=== PATIENT | female | born 1960 | race Caucasian/White ===

== ENCOUNTER 2018-01-22 11:32 | Outpatient (CLI) | payer BC, SELFPAY ==
[2018-01-22 13:51] LABS: TSH (W/Ref FT4) 4.89 uIU/mL (0.358-3.74)
[2018-01-22 14:10] LABS: FREE T4 0.91 ng/dL (0.76-1.46)
== END 2018-01-22 11:52 ==
PROVIDERS: PCP General Practice; Visit Provider Nurse Practitioner Family
DX: N93.9 Abnormal uterine and vaginal bleeding, unspecified (principal)
CPT/HCPCS: 36415; 84439; 84443

== ENCOUNTER 2018-01-22 12:41 | Outpatient (REF) | payer BC, SELFPAY ==
--- NOTE | 2018-01-22 11:30 | PAPFT_PTH ---
PATIENT: Adela Sims LOC: [facility] U#:[id number] AGE/SX: 57/F ROOM: RE01/22/[address]: MAHENDRA Salgado : 1960 BED: DIS: 01/22/2018 SPEC #: [id number] RECD: 01/22/18 17:38 STATUS: CANDY REQ #: [id number] SOMMER: 01/22/18 11:[address]: Aria Stewart DEPT: [facility] Cytology RECD BY: Libia Rodrigues ENTERED: 01/22/18 17:39 SP TYPE: PAPFT OTHR DR: Xander Jordan Tissues: 1 - CX/ENDOCX FOR PAP SMEARS Procedures: PAP THIN PREP/UVM Screening HPV DNA PROBE Comments: [id number]
== END 2018-01-22 13:01 ==
LOC: LBN 12:41
PROVIDERS: PCP General Practice; Visit Provider Nurse Practitioner Family
DX: Z12.4 Encounter for screening for malignant neoplasm of cervix (principal); Z11.51 Encounter for screening for human papillomavirus (HPV)
CPT/HCPCS: 88142; 87624

== ENCOUNTER 2018-02-09 00:07 | Outpatient (CLI) | payer BC, SELFPAY ==
--- NOTE | 2018-02-09 11:23 | DI.MAMMO_ITS ---
SYMPTOMS/DIAGNOSIS: SCREENING, Z12.31 MAMMOGRAM: Mammograms were interpreted according to the usual protocol including computer analysis with CAD system, tomosynthesis and C view imaging. The breasts are heterogeneously dense. No dominant mass or clumped microcalcification is identified in either breast. Current examination is compared with the previous examinations including November 2015 and there is a question of increased prominence of a focal area of asymmetric density with a vaguely nodular appearance projected in the central portion of the right breast on CC view only. Additional mammographic views of the right breast are requested to include a CC spot compression view. CONCLUSION: Additional mammographic views of the right breast are requested as described above. Breast ultrasound may be indicated as well depending on the results of the additional mammographic views. Category 0, breast density category C. MQSA ASSESSMENT OF FINDINGS: Incomplete: Needs additional imaging evaluation. Category 0. Patient will receive a letter notifying them of these results. Bi-RADS category C. The breasts are heterogeneously dense, which may obscure small masses.
--- NOTE | 2018-02-09 12:43 | DI.US_ITS ---
SYMPTOMS/DIAGNOSIS: ABNL BLEEDING, N93.9 PELVIC ULTRASOUND: Pelvic ultrasound was performed transabdominally and transvaginally. Incidental note is made of an apparent 3 cm in diameter lobulated or septated right hepatic lobe cyst. The ovaries are nonvisualized. The uterus is unremarkable in appearance with a 3 mm homogeneous endometrial stripe. Limited scanning of the kidneys is unremarkable. CONCLUSION: Nonvisualized ovaries. The examination is otherwise unremarkable.
== END 2018-02-09 00:27 ==
PROVIDERS: PCP General Practice; Visit Provider Nurse Practitioner Family
DX: Z12.31 Encounter for screening mammogram for malignant neoplasm of breast (principal); R92.8 Other abnormal and inconclusive findings on diagnostic imaging of breast; N93.9 Abnormal uterine and vaginal bleeding, unspecified; K76.89 Other specified diseases of liver
CPT/HCPCS: 77063; 77067; 76830; 76856

== ENCOUNTER 2018-02-16 00:49 | Outpatient (CLI) | payer MEDICAID, SELFPAY ==
--- NOTE | 2018-02-16 10:43 | DI.COMBO_ITS ---
SYMPTOM/DIAGNOSIS: F/U MAMMO, RT ASYMMETRIC DENSITY RIGHT BREAST ADDITIONAL VIEWS AND RIGHT BREAST ULTRASOUND: Additional images are interpreted according to the usual protocol including tomosynthesis and 2D imaging. Additional views of the right breast fail to show a persistent discrete mass. Breast density, category C. A right breast ultrasound was performed of the upper outer and lower outer quadrants. No cystic or solid masses are seen sonographically. IMPRESSION: No evidence for malignancy. Yearly mammography is recommended. Category 1. The findings were discussed with the patient on the date of the examination. MQSA ASSESSMENT OF FINDINGS: Negative. Category 1. Patient will receive a letter notifying them of these results. Bi-RADS category C. The breasts are heterogeneously dense, which may obscure small masses.
== END 2018-02-16 01:09 ==
PROVIDERS: PCP General Practice; Visit Provider Nurse Practitioner Family
DX: Z12.31 Encounter for screening mammogram for malignant neoplasm of breast (principal); R92.8 Other abnormal and inconclusive findings on diagnostic imaging of breast; N64.59 Other signs and symptoms in breast
CPT/HCPCS: 76642; 77063; 77067

== ENCOUNTER 2018-02-22 10:34 | Outpatient (CLI) | payer MEDICAID, SELFPAY ==
[2018-02-23 10:24] LABS: FSH 49.5 mIU/ml; LH 42.3 mIU/ml
== END 2018-02-22 10:54 ==
PROVIDERS: PCP General Practice; Visit Provider Nurse Practitioner Family
DX: N93.9 Abnormal uterine and vaginal bleeding, unspecified (principal)
CPT/HCPCS: 36415; 83001; 83002

== ENCOUNTER 2018-02-23 11:51 | Day surgery (SDC) | payer MEDICAID, SELFPAY ==
[2018-02-23 12:13] VITALS: BP 152/79; PULSE 71; RESP 16; TEMP 37; O2SAT 98
[2018-02-23] MEDS: Lactated Ringers 1,000 ML 30 ML IV (12:46)
--- NOTE | 2018-02-23 13:52 | W.COLOREPORT ---
Date of service: 02/23/18 Time of Service: 13:00 Colonoscopy Report Date of procedure: 02/23/18 Pre-op diagnosis general: Colorectal cancer screening Post-op diagnosis procedure note: other (Normal colon to the cecum) Procedure: Colonoscopy to the cecum Surgeon: Ismael Ragland Anesthesia proc note operative: MAC (Tory Mckeon CRNA; ASA 2 Mallampati class II) Estimated blood loss (mL): 0 Pathology: none sent Complications: None Disposition: same day Indications: 57-year-old woman presenting for colorectal cancer screening. She has been asymptomatic, and has no family history of colorectal cancer. The colonoscopy procedure is been reviewed with her. The risks of the procedure were discussed. All her questions been answered to her satisfaction. Consent has been obtained to proceed with colonoscopy. Prep: Miralax/Dulcolax (Prep quality excellent) Procedure Start Time: 13:34 Procedure End Time: 13:48 Retraction Time: 10 Findings: Examining the colon from cecum to anus, no abnormalities were noted in the colon, rectum, or anorectal junction Procedure Description: The patient was seen in the day surgery waiting area. Her identification was confirmed, and procedure checked. She was then brought to the procedure room. Monitoring for telemetry, blood pressure, oxygen saturation, and end tidal CO2 monitoring were applied. An appropriate time out was performed to confirm, identification, allergies, medication, procedure, was performed. Sedation was titrated for affect by the REAL ESTATE UTILIZATION OFFICER; Once adequate sedation was achieved, I performed a inspection of the external perineum, and a digitial rectal examination. No significant external abnormalities were noted. On digital rectal examination, there was no blood, no masses, good rectal tone. I advanced the colonoscope from the anus to the cecum under direct visualization. The cecum was identified by the ileal-cecal valve, and the appendiceal orifice. The scope was then withdrawn in circumferential manner from the cecum to the rectum. No abnormalites were noted in the colon. The scope was then withdrawn into the rectum, and retroflexed. No abnormalities were noted of the rectum or anorectal junction. The scope was then withdrawn, terminating the procedure. There were no complications during the procedure, and the patient tolerated the procedure well. She was returned to the day surgery recovery area in good condition. Plan: Will continue with routine screening for colorectal cancer according to current consensus guidelines, which is currently 10 years.
--- NOTE | 2018-02-23 13:56 | COLE_ITS ---
Date of service: 02/23/18 Time of Service: 13:00 Colonoscopy Report Date of procedure: 02/23/18 Pre-op diagnosis general: Colorectal cancer screening Post-op diagnosis procedure note: other (Normal colon to the cecum) Procedure: Colonoscopy to the cecum Surgeon: Ismael Ragland Anesthesia proc note operative: MAC (Tory Mckeon CRNA; ASA 2 Mallampati class II) Estimated blood loss (mL): 0 Pathology: none sent Complications: None Disposition: same day Indications: 57-year-old woman presenting for colorectal cancer screening. She has been asymptomatic, and has no family history of colorectal cancer. The colonoscopy procedure is been reviewed with her. The risks of the procedure were discussed. All her questions been answered to her satisfaction. Consent has been obtained to proceed with colonoscopy. Prep: Miralax/Dulcolax (Prep quality excellent) Procedure Start Time: 13:34 Procedure End Time: 13:48 Retraction Time: 10 Findings: Examining the colon from cecum to anus, no abnormalities were noted in the colon, rectum, or anorectal junction Procedure Description: The patient was seen in the day surgery waiting area. Her identification was confirmed, and procedure checked. She was then brought to the procedure room. Monitoring for telemetry, blood pressure, oxygen saturation, and end tidal CO2 monitoring were applied. An appropriate time out was performed to confirm, identification, allergies, medication, procedure, was performed. Sedation was titrated for affect by the COACH MECHANIC; Once adequate sedation was achieved, I performed a inspection of the external perineum, and a digitial rectal examination. No significant external abnormalities were noted. On digital rectal examination, there was no blood, no masses, good rectal tone. I advanced the colonoscope from the anus to the cecum under direct vi sualization. The cecum was identified by the ileal-cecal valve, and the appendiceal orifice. The scope was then withdrawn in circumferential manner from the cecum to the rectum. No abnormalites were noted in the colon. The scope was then withdrawn into the rectum, and retroflexed. No abnormalities were noted of the rectum or anorectal junction. The scope was then withdrawn, terminating the procedure. There were no complications during the procedure, and the patient tolerated the procedure well. She was returned to the day surgery recovery area in good condition. Plan: Will continue with routine screening for colorectal cancer according to current consensus guidelines, which is currently 10 years.
--- NOTE | 2018-02-23 13:58 | W.PM.DSUDISC ---
Discharge Plan Disposition Patient Disposition: HOME Condition: Good Discharge Details Reason For Visit: colorectal cancer screening Attending Provider: Ismael Ragland Primary Care Provider: Xander Jordan Home Meds and New Rx's Prescriptions: Continued fluoxetine [Prozac] 20 mg capsule 20 mg PO DAILY RF: 0 propranolol 40 mg tablet 40 mg PO BID RF: 0 Discontinued bisacodyl [Dulcolax (bisacodyl)] 5 mg tablet,delayed release (DR/EC) 5 mg PO ONCE Qty: 4 RF: 0 polyethylene glycol 3350 17 gram/dose powder 255 g PO ONCE Qty: 255 RF: 0 Discharge Instructions Instructions: Colonoscopy (DC) Activity:: Activity as Tolerated Diet:: As Tolerated Discharge Orders Discharge Orders: Discharge Order (Routine); Ordered 02/23/18 Ordered By: Ismael Ragland DS: Diagnosis Discharge Diagnosis (1) Encounter for screening colonoscopy: Status: Acute Asessment and Plan: Colonoscopy performed: Colonoscopy Report Date of procedure: 02/23/18 Pre-op diagnosis general: Colorectal cancer screening Post-op diagnosis procedure note: other (Normal colon to the cecum) Procedure: Colonoscopy to the cecum Surgeon: Ismael Ragland Anesthesia proc note operative: MAC (Tory Mckeon CRNA; ASA 2 Mallampati class II) Estimated blood loss (mL): 0 Pathology: none sent Complications: None Disposition: same day Indications: 57-year-old woman presenting for colorectal cancer screening. She has been asymptomatic, and has no family history of colorectal cancer. The colonoscopy procedure is been reviewed with her. The risks of the procedure were discussed. All her questions been answered to her satisfaction. Consent has been obtained to proceed with colonoscopy. Prep: Miralax/Dulcolax (Prep quality excellent) Procedure Start Time: 13:34 Procedure End Time: 13:48 Retraction Time: 10 Findings: Examining the colon from cecum to anus, no abnormalities were noted in the colon, rectum, or anorectal junction Procedure Description: The patient was seen in the day surgery waiting area. Her identification was confirmed, and procedure checked. She was then brought to the procedure room. Monitoring for telemetry, blood pressure, oxygen saturation, and end tidal CO2 monitoring were applied. An appropriate time out was performed to confirm, identification, allergies, medication, procedure, was performed. Sedation was titrated for affect by the CONE CLEANER; Once adequate sedation was achieved, I performed a inspection of the external perineum, and a digitial rectal examination. No significant external abnormalities were noted. On digital rectal examination, there was no blood, no masses, good rectal tone. I advanced the colonoscope from the anus to the cecum under direct visualization. The cecum was identified by the ileal-cecal valve, and the appendiceal orifice. The scope was then withdrawn in circumferential manner from the cecum to the rectum. No abnormalites were noted in the colon. The scope was then withdrawn into the rectum, and retroflexed. No abnormalities were noted of the rectum or anorectal junction. The scope was then withdrawn, terminating the procedure. There were no complications during the procedure, and the patient tolerated the procedure well. She was returned to the day surgery recovery area in good condition. Plan: Will continue with routine screening for colorectal cancer according to current consensus guidelines, which is currently 10 years.
[2018-02-23 14:20] VITALS: BP 122/67; PULSE 64; RESP 16; TEMP 36.6; O2SAT 99
== END 2018-02-23 14:30 | disposition home or self-care (01) ==
PROVIDERS: PCP General Practice; Visit Provider Surgery
PROC: 0DJD8ZZ Inspection of Lower Intestinal Tract, Via Natural or Artificial Opening Endoscopic (ICD-10-PCS; CPT 45378; principal; 2018-02-23 11:15)
DX: Z12.11 Encounter for screening for malignant neoplasm of colon (principal); I10 Essential (primary) hypertension
CPT/HCPCS: 45378

== ENCOUNTER 2018-03-07 15:33 | Outpatient (CLI) | payer MEDICAID, SELFPAY ==
[2018-03-07 17:03] LABS: TSH (W/Ref FT4) 4.47 uIU/mL (0.358-3.74)
[2018-03-07 17:20] LABS: FREE T4 1.11 ng/dL (0.76-1.46)
== END 2018-03-07 15:53 ==
PROVIDERS: PCP General Practice; Visit Provider General Practice
DX: E03.9 Hypothyroidism, unspecified (principal)
CPT/HCPCS: 36415; 84439; 84443

== ENCOUNTER 2018-08-02 06:07 | Day surgery (SDC) | payer MEDICAID, SELFPAY ==
[2018-08-02 06:23] VITALS: BP 145/83; PULSE 73; RESP 18; TEMP 36.4; O2SAT 99
[2018-08-02] MEDS: Lactated Ringers 1,000 ML 125 ML IV (06:48)
[2018-08-02] MEDS: Lidocaine 1% Multi-Dose 50 ML VIAL (08:02)
--- NOTE | 2018-08-02 08:20 | ENDOMET_PTH ---
PATIENT: Adela Sims LOC: [facility] U#:[id number] AGE/SX: 57/F ROOM: RE08/02/[address]: Juan Phan MD : 1960 BED: DIS: 08/02/2018 SPEC #: [id number] RECD: 08/02/18 11:34 STATUS: CANDY REQ #: [id number] SOMMER: 08/02/18 08:[address]: Juan Phan DEPT: Surgical Specimen RECD BY: Libia Rodrigues ENTERED: 08/02/18 11:36 SP TYPE: Endomet OTHR DR: Xander Jordan Tissues: 1 - ENDOMETRIUM BX/CURRETTE 2 - ENDOMETRIUM BX/CURRETTE Procedures: GROSS AND MICRO LEVEL 4 Comments: [id number]
--- NOTE | 2018-08-02 08:39 | W.PM.OP ---
Date of service: 08/02/18 Time of Service: 08:39 Operative Note DATE OF PROCEDURE: 08/02/18 PRE-OP DIAGNOSIS: AUB POST-OP DIAGNOSIS: same PROCEDURE: Hysteroscopy, D&C, polypectomy SURGEON: Juan Phan ANESTHESIA: MAC and local ESTIMATED BLOOD LOSS: 0 PATHOLOGY: other (1. Endometrial polyps. 2. Endometrial curettings ) Findings: 1. Stenotic cervical os 2. Atrophic appearing endometrium 3. 2 endometrial polyps Procedure Description: The patient was taken to the operating room and after adequate level of anesthesia was achieved the patient was prepped and draped in usual sterile manner. The patient was placed in lithotomy position. A Vero retractor was placed in the vagina with good visualization of the cervix. The anterior lip of the cervix was grasped with a single-tooth tenaculum. The external os was significantly stenotic. A paracervical block with 1% percent plain lidocaine solution was instilled. The cervix was serially dilated with Alston dilators. A 5 mm hysteroscope with normal saline distention media was advanced through the cervix with good visualization of the endometrial cavity. The majority of the endometrial lining was thin and atrophic in appearance. 2 large endometrial polyps were noted at the fundus. These were removed with polyp forceps. A sharp curettage was performed and minimal tissue was returned. Several passes were made with the hysteroscope and polyp forceps to ensure complete removal of the endometrial polyps. The procedure was concluded at this point. All instrumentation was removed. The patient tolerated the procedure well and was transferred to PACU in stable condition.
[2018-08-02 08:40] VITALS: BP 120/71; PULSE 70; RESP 16; TEMP 36.5; O2SAT 97
[2018-08-02 08:45] VITALS: BP 151/87; PULSE 69; RESP 16; TEMP 36.5; O2SAT 97
[2018-08-02 08:50] VITALS: BP 143/72; PULSE 71; RESP 14; TEMP 36.5; O2SAT 98
[2018-08-02 08:59] VITALS: BP 150/73; PULSE 64; RESP 14; TEMP 36.5; O2SAT 98
[2018-08-02 09:40] VITALS: BP 129/73; PULSE 56; RESP 16; TEMP 36.6; O2SAT 99
== END 2018-08-02 10:02 | disposition home or self-care (01) ==
LOC: SUR 06:07
PROVIDERS: PCP General Practice; Visit Provider Obstetrics & Gynecology
PROC: 0UDB8ZZ Extraction of Endometrium, Via Natural or Artificial Opening Endoscopic (ICD-10-PCS; CPT 58558; principal; 2018-08-02 07:30)
DX: N93.8 Other specified abnormal uterine and vaginal bleeding (principal); N84.0 Polyp of corpus uteri; N88.2 Stricture and stenosis of cervix uteri; N85.8 Other specified noninflammatory disorders of uterus
CPT/HCPCS: 58558; 88305; J1885; J2405

== ENCOUNTER 2018-08-30 13:21 | Outpatient (CLI) | payer MEDICAID, SELFPAY ==
[2018-08-30 15:01] LABS: TSH (W/Ref FT4) 5.58 uIU/mL (0.358-3.74)
== END 2018-08-30 13:41 ==
PROVIDERS: PCP General Practice; Visit Provider General Practice
DX: E03.9 Hypothyroidism, unspecified (principal)
CPT/HCPCS: 36415; 84439; 84443

== ENCOUNTER 2018-10-10 02:23 | Outpatient (CLI) | payer MEDICAID, SELFPAY ==
[2018-10-10 11:39] LABS: TSH 3.06 uIU/mL (0.36-3.74)
[2018-10-11 12:36] LABS: Thyroglobulin Antibody 17 U/mL (<61); Thyroperoxidase Antibody <28 U/mL (<61)
== END 2018-10-10 02:43 ==
PROVIDERS: PCP General Practice; Visit Provider General Practice
DX: E03.9 Hypothyroidism, unspecified (principal)
CPT/HCPCS: 36415; 86376; 84443

== ENCOUNTER 2019-11-06 02:34 | Outpatient (CLI) | payer MEDICAID, SELFPAY ==
[2019-11-06 10:08] LABS: HCT 47.1 % (36.0-46.0); HGB 14.8 g/dL (11.2-15.7); MCH 29.5 pg (27.0-33.0); MCHC 31.4 % (32.0-36.0); MCV 93.8 fL (80-95); MPV 9.7 fL (8.0-11.0); Platelet Count 251 10^3/uL (130-400); RBC 5.02 10^6/uL (3.93-5.22); RDW 13.3 % (11.7-14.6); RDW-SD 46.1 fL; WBC 6.15 10^3/uL (4.4-10.8)
[2019-11-06 10:47] LABS: Hemoglobin A1C 5.5 % (3.8-5.6)
[2019-11-06 11:35] LABS: ALT 40 U/L (14-59); AST 20 U/L (15-37); Albumin 3.6 g/dL (3.4-5.0); Alkaline Phosphatase 91 U/L (46-116); Anion Gap 6.2 mmol/L (3-11); BUN 18 mg/dL (7-18); Bilirubin, Total 0.3 mg/dL (0.2-1.0); CO2 27.8 mmol/L (21.0-32.0); CREATININE 0.82 mg/dL (0.55-1.02); Calculated LDL 172 mg/dL (<100); Chloride 105 mmol/L (98-107); Cholesterol 245 mg/dL (<200); Glucose 101 mg/dL (74-106); HDL Cholesterol 54 mg/dL (40-60); Potassium 4.5 mmol/L (3.5-5.1); Sodium 139 mmol/L (136-145); Total Protein 7.1 g/dL (6.4-8.2); Triglyceride 96 mg/dL (<150)
== END 2019-11-06 02:54 ==
PROVIDERS: PCP Nurse Practitioner; Visit Provider Nurse Practitioner
DX: E03.9 Hypothyroidism, unspecified (principal); I10 Essential (primary) hypertension; F41.1 Generalized anxiety disorder; E66.3 Overweight
CPT/HCPCS: 36415; 80053; 80061; 85027; 83036; 84443

== ENCOUNTER 2021-01-01 02:08 | Outpatient (CLI) | payer MEDICAID, SELFPAY ==
[2021-01-01 07:39] LABS: HCT 46.3 % (36.0-46.0); HGB 14.6 g/dL (11.2-15.7); MCH 29.7 pg (27.0-33.0); MCHC 31.5 % (32.0-36.0); MCV 94.3 fL (80-95); MPV 9.3 fL (8.0-11.0); Platelet Count 241 10^3/uL (130-400); RBC 4.91 10^6/uL (3.93-5.22); RDW 12.8 % (11.7-14.6); WBC 6.58 10^3/uL (4.4-10.8)
[2021-01-01 07:44] LABS: ESR 23 mm/hr (0-30)
[2021-01-01 08:00] LABS: Hemoglobin A1C 5.2 % (<5.7)
[2021-01-01 09:17] LABS: ALT 44 U/L (14-59); AST 22 U/L (15-37); Albumin 3.7 g/dL (3.4-5.0); Alkaline Phosphatase 90 U/L (46-116); Anion Gap 6.8 mmol/L (3-11); BUN 22 mg/dL (7-18); Bilirubin, Total 0.4 mg/dL (0.2-1.0); CO2 30.2 mmol/L (21.0-32.0); CREATININE 0.9 mg/dL (0.55-1.02); Calculated LDL 180 mg/dL (<100); Chloride 104 mmol/L (98-107); Cholesterol 252 mg/dL (<200); Glucose 96 mg/dL (74-106); HDL Cholesterol 52 mg/dL (40-60); Potassium 4.5 mmol/L (3.5-5.1); Sodium 141 mmol/L (136-145); TSH (W/Ref FT4) 3.83 uIU/mL (0.36-3.74); Total Protein 7.4 g/dL (6.4-8.2); Triglyceride 101 mg/dL (<150)
[2021-01-01 09:53] LABS: C-Reactive Protein 1.16 mg/dL (0.0-0.3); FREE T4 0.92 ng/dL (0.76-1.46)
[2021-01-01 16:25] LABS: Rheumatoid Factor <8.6 IU/mL (<12.0)
[2021-01-02 09:34] LABS: HIV-1/2 Ag & Ab Screen Negative (Negative)
[2021-01-02 21:09] LABS: Anaplasma phagocytophilum Negative (Negative); B. miyamotoi PCR Negative (Negative); Babesia divergens/MO-1 Negative (Negative); Babesia duncani Negative (Negative); Babesia microti Negative (Negative); Ehrlichia chaffeensis Negative (Negative); Ehrlichia ewingii/canis Negative (Negative); Ehrlichia muris eauclairensis Negative (Negative)
[2021-01-04 11:12] LABS: Hepatitis C Ab w Rflx HCV PCR Negative (Negative)
[2021-01-04 11:48] LABS: Lyme Ab w Rflx to Lyme Confirm Negative (Negative)
[2021-01-04 12:25] LABS: ANA Interpretation Positive (Negative); ANA Titer Pattern 1:160 Speckled
== END 2021-01-01 02:09 | disposition home or self-care (01) ==
LOC: LBO 02:08
PROVIDERS: PCP Nurse Practitioner; Visit Provider Nurse Practitioner
DX: E03.9 Hypothyroidism, unspecified (principal); E78.00 Pure hypercholesterolemia, unspecified; I10 Essential (primary) hypertension; R73.01 Impaired fasting glucose; E66.3 Overweight; M25.59 Pain in other specified joint; M79.89 Other specified soft tissue disorders; Z11.59 Encounter for screening for other viral diseases; Z11.4 Encounter for screening for human immunodeficiency virus [HIV]
CPT/HCPCS: 36415; 80053; 80061; 85027; 85652; 86803; 87389; 87798; 83036; 84439; 84443; 86038; 86140; 86431; 86618

== ENCOUNTER 2021-01-21 01:01 | Outpatient (CLI) | payer MEDICAID, SELFPAY ==
--- NOTE | 2021-01-21 07:45 | DI.RAD_ITS ---
Exam(s) XR HAND RT COMPLETE EXAM: XR HAND RT COMPLETE CLINICAL HISTORY: RT HAND PAIN, M79.641,STIFFNESS. TECHNIQUE: 2D digital imaging was performed. COMPARISON: CR XR WRIST LT COMPLETE from 01/21/2021 FINDINGS: BONES: No acute fracture is present. No bony destructive lesion is seen. JOINTS: No dislocation present. Mild joint space narrowing and periarticular spurring of the distal interphalangeal joints, greatest at the index finger. SOFT TISSUE: Normal. IMPRESSION: Mild degenerative changes. DATA REPOSITORY: RADIATION DOSE DELIVERED:
--- NOTE | 2021-01-21 07:45 | DI.RAD_ITS ---
Exam(s) XR WRIST LT COMPLETE EXAM: XR WRIST LT COMPLETE CLINICAL HISTORY: LT WRIST PAIN, M25.532, STIFFNESS. TECHNIQUE: 2D digital imaging was performed. COMPARISON: No exams were available for comparison FINDINGS: BONES: No acute fracture is present. No bony destructive lesion is seen. JOINTS: The carpal bones are normally aligned. SOFT TISSUE: Normal. IMPRESSION: Unremarkable radiographs of the left wrist. DATA REPOSITORY: RADIATION DOSE DELIVERED:
--- NOTE | 2021-01-21 11:00 | DI.MAMMO_ITS ---
Exam(s) MAMMO SCREENING EXAM: MAMMO SCREENING CLINICAL HISTORY: screening,Z12.39 TECHNIQUE: Mammograms were interpreted according to the usual protocol including computer analysis w Conjunct CAD system, tomosynthesis and C-view imaging. COMPARISON: 2010 through 2017 FINDINGS: The breasts are composed of heterogeneously dense fibroglandular densities, Breast Density category C . No suspicious masses or suspicious microcalcifications are seen. No skin thickening or abnormal axillary lymph nodes are seen. There has been no significant change from prior exams. IMPRESSION: BI-RADS Category 1, Negative mammogram. Yearly screening mammography is recommended. Breast Density Category C, heterogeneously Dense. The mammogram demonstrates the patient's breast tissue is dense. Dense breast tissue is very common a nd is not abnormal but dense breast tissue can make it harder to find cancer on a mammogram. Also, de nse breast tissue may increase breast cancer risk. This information about the result of the mammogram report was provided to the patient to raise their awareness. Use this report when you speak with the patient about their risks for breast cancer, which includes their family history. At that time, you may recommend additional screening tests (Ultrasound or MRI) as they might be useful based on their r isk. A negative radiographic report should not delay biopsy if a dominant or clinically suspicious mass is present. Up to ten percent of cancers are not identified on mammography. A negative report may reinforce clinical impression. Adenosis and dense breasts may obscure an underlying neoplasm. False positive reports average 6 to 10%.
== END 2021-01-21 01:21 ==
PROVIDERS: PCP Nurse Practitioner; Visit Provider Nurse Practitioner
DX: Z12.31 Encounter for screening mammogram for malignant neoplasm of breast (principal); M25.532 Pain in left wrist; M25.632 Stiffness of left wrist, not elsewhere classified; M79.641 Pain in right hand; M25.641 Stiffness of right hand, not elsewhere classified; M19.041 Primary osteoarthritis, right hand
CPT/HCPCS: 77063; 77067; 73110; 73130

== ENCOUNTER 2022-01-03 02:32 | Outpatient (CLI) | payer MEDICAID, SELFPAY ==
[2022-01-03 07:45] LABS: Abs Immature Grans 0.02 10^3/uL (0.0-0.06); Absolute Basophil Count 0.09 10^3/uL (0.0-0.2); Absolute Eosinophil Count 0.31 10^3/uL (0.0-0.7); Absolute Lymphocyte Count 2.07 10^3/uL (1.2-3.4); Absolute Monocyte Count 0.61 10^3/uL (0.1-0.8); Absolute Neutrophil Count 3.32 10^3/uL (1.2-6.7); Basophils % 1.4; Eosinophils % 4.8; HCT 45.2 % (36.0-46.0); HGB 14.7 g/dL (11.2-15.7); Immature Grans % 0.3; Lymphocytes % 32.2; MCH 29.9 pg (27.0-33.0); MCHC 32.5 % (32.0-36.0); MCV 92 fL (80-95); Monocytes % 9.5; Neutrophils % 51.8; Platelet Count 243 10^3/uL (130-400); RBC 4.91 10^6/uL (3.93-5.22); RDW 13.2 % (11.7-14.6); RDW-SD 44.5 fL; WBC 6.42 10^3/uL (4.4-10.8)
[2022-01-03 08:00] LABS: Hemoglobin A1C 5.4 % (<5.7)
[2022-01-03 08:21] LABS: ALT 38 U/L (14-59); AST 24 U/L (15-37); Albumin 3.6 g/dL (3.4-5.0); Alkaline Phosphatase 90 U/L (46-116); Anion Gap 6.8 mmol/L (3-11); BUN 20 mg/dL (7-18); Bilirubin, Total 0.5 mg/dL (0.2-1.0); CO2 29.2 mmol/L (21.0-32.0); CREATININE 0.8 mg/dL (0.55-1.02); Calcium 9.3 mg/dL (8.5-10.1); Calculated LDL 165 mg/dL (<100); Chloride 102 mmol/L (98-107); Cholesterol 234 mg/dL (<200); Estimated GFR 83.78 (mL/min/1.73m2); Glucose 90 mg/dL (74-106); HDL Cholesterol 52 mg/dL (40-60); Potassium 4.3 mmol/L (3.5-5.1); Sodium 138 mmol/L (136-145); TSH (W/Ref FT4) 3.42 uIU/mL (0.36-3.74); Total Protein 7.9 g/dL (6.4-8.2); Triglyceride 87 mg/dL (<150)
== END 2022-01-03 02:33 | disposition home or self-care (01) ==
LOC: LBO 02:33
PROVIDERS: Absent Provider Nurse Practitioner; PCP Nurse Practitioner; Visit Provider Nurse Practitioner
DX: E78.00 Pure hypercholesterolemia, unspecified (principal); I10 Essential (primary) hypertension; E03.9 Hypothyroidism, unspecified; R73.01 Impaired fasting glucose
CPT/HCPCS: 36415; 80053; 80061; 83036; 84443; 85025

== ENCOUNTER → 2022-01-28 00:08 | Outpatient (CLI) | payer MEDICAID, SELFPAY ==
--- NOTE | 2022-01-28 06:45 | DI.MAMMO_ITS ---
Exam(s) MAMMO SCREENING EXAM: MAMMO SCREENING CLINICAL HISTORY: screening,z12.39. TECHNIQUE: Bilateral full field digital CC and MLO mammographic images were obtained with 3D tomosyn thesis and utilizing computer aided detection (CAD). COMPARISON: Prior mammograms were reviewed. FINDINGS: Fibroglandular tissue is again noted be moderately dense. There are no new spiculated masses nor malignant appearing microcalcification groups. There is no significant architectural distortion nor skin thickening-retraction. IMPRESSION: No radiographic evidence of malignancy. BI-RADS Category 1 - Negative Breast Density - Category C - Heterogeneously dense Breast density Category C or D implies that the patient has dense breast tissue. Dense breast tissue can make it harder to find cancer on a mammogram. Dense breast tissue is also associated with an incr eased risk of breast cancer. This information about the result of the mammogram report was provided to the patient to raise their awareness. Use this report when you speak with the patient about their risks for breast cancer, which includes their family history. At that time, you may recommend additional screening tests (Ultrasoun d or MRI) as these tests may add significant information. A negative radiographic report should not delay biopsy if a dominant or clinically suspicious mass is present. Up to ten percent of cancers are not identified on mammography. A negative report may reinforce clinical impression. Adenosis and dense breasts may obscure an underlying neoplasm. False positive reports average 6 to 10%. Patient will receive a letter notifying them of these results.
== END ==
PROVIDERS: PCP Nurse Practitioner; Visit Provider Nurse Practitioner
DX: Z12.31 Encounter for screening mammogram for malignant neoplasm of breast (principal); R92.8 Other abnormal and inconclusive findings on diagnostic imaging of breast
CPT/HCPCS: 77063; 77067

== ENCOUNTER → 2023-03-24 01:07 | Outpatient (CLI) | payer MEDICAID, SELFPAY ==
--- NOTE | 2023-03-24 06:45 | DI.MAMMO_ITS ---
Exam(s) MAMMO SCREENING EXAM: MAMMO SCREENING CLINICAL HISTORY: screening,z12.39 TECHNIQUE: Bilateral full field digital CC and MLO mammographic images were obtained with 3D tomosyn thesis and utilizing computer aided detection (CAD). COMPARISON: Available for comparison. FINDINGS: Masses/Architectural Distortion: None seen. Microcalcifications: No suspicious pleomorphic-type are seen. Skin Thickening/Nipple Retraction: None. IMPRESSION: 1. No significant interval change with no specific features of malignancy noted. 2. Unless there is more urgent need, screening mammography is recommended, as per [employer] guidelines. BI-RADS Category 1 - Negative Breast Density - Category C - Heterogeneously dense Breast density category C or D implies that the patient has dense breast tissue. Dense breast tissue is very common and is not abnormal but dense breast tissue can make it harder to find cancer on a ma mmogram. Also, dense breast tissue may increase their breast cancer risk. This information about the result of the mammogram report was provided to the patient to raise their awareness. Use this report when you speak with the patient about their risks for breast cancer, which includes their family hist ory. At that time, you may recommend for more screening tests (Ultrasound or MRI) as they might be us eful based on their risk. A negative radiographic report should not delay biopsy if a dominant or clinically suspicious mass is present. Up to ten percent of cancers are not identified on mammography. A negative report may reinforce clinical impression. Adenosis and dense breasts may obscure an underlying neoplasm. False positive reports average 6 to 10%. Patient will receive a letter notifying them of these results.
--- NOTE | 2023-03-24 08:18 | DI.RAD_ITS ---
Exam(s) XR LUMBAR SPINE COMPLETE EXAM: XR LUMBAR SPINE COMPLETE CLINICAL HISTORY: chronic low back pain,m54.50. TECHNIQUE: 2D digital imaging was performed of the lumbar spine. Five images were obtained. AP, la teral, right oblique, left oblique and L5-S1 spot views were obtained. COMPARISON: No exams were available for comparison FINDINGS: BONES: No fracture or destructive lesion. There are endplate osteophytes seen at several levels of th e lumbar spine particularly T12-L1 and L3-L4. Mild degenerative changes of the facets are seen at L5- S1 and L4-L5. DISKS: Mild disc space narrowing is seen at L3-L4 and T12-L1. ALIGNMENT: Lumbar spinal alignment is within normal limits. No spondylolysis or spondylolisthesis. SOFT TISSUE: Normal. IMPRESSION: Mild degenerative changes in the lumbar spine. DATA REPOSITORY: RADIATION DOSE DELIVERED:
== END ==
PROVIDERS: PCP Nurse Practitioner Family; Visit Provider Nurse Practitioner Family
DX: M51.36 Other intervertebral disc degeneration, lumbar region; Z12.31 Encounter for screening mammogram for malignant neoplasm of breast
CPT/HCPCS: 77063; 77067; 72110

== ENCOUNTER 2023-07-05 10:24 | Outpatient (REF) | payer MEDICAID, SELFPAY ==
--- NOTE | 2023-07-05 10:00 | PAPFT_PTH ---
PATIENT: Adela Sims LOC: [facility]#:[id number] AGE/SX: 62/F ROOM: RE07/05/[address]: MAHENDRA Carvalho : 1960 BED: DIS: 07/05/2023 SPEC #: [id number] RECD: 07/05/23 12:59 STATUS: CANDY REMaik #: [id number] SOMMER: 07/05/23 10:[address]: Jeanine Petersen DEPT: [facility] Cytology RECD BY: Libia Rodrigues Tissues: 1 - CX/ENDOCX FOR PAP SMEARS Procedures: PAP THIN PREP/UVM Screening HPV DNA PROBE Comments: [id number]
== END 2023-07-05 10:25 | disposition home or self-care (01) ==
LOC: LBN 10:24
PROVIDERS: PCP Nurse Practitioner Family; Visit Provider Nurse Practitioner Family
DX: Z12.4 Encounter for screening for malignant neoplasm of cervix (principal)
CPT/HCPCS: 88142; 87624

== ENCOUNTER 2023-08-18 05:17 | Outpatient (CLI) | payer MEDICAID, SELFPAY ==
[2023-08-18 09:09] LABS: ALT 28 U/L (14-59); AST 16 U/L (15-37); Albumin 3.5 g/dL (3.4-5.0); Alkaline Phosphatase 78 U/L (46-116); BUN 20 mg/dL (7-18); Bilirubin, Total 0.5 mg/dL (0.2-1.0); CREATININE 0.9 mg/dL (0.55-1.02); Calcium 9.3 mg/dL (8.5-10.1); Calculated LDL 183 mg/dL (<100); Chloride 102 mmol/L (98-107); Cholesterol 266 mg/dL (<200); Estimated GFR 71.83 (mL/min/1.73m2); Glucose 106 mg/dL (74-106); HDL Cholesterol 63 mg/dL (40-60); Potassium 4.4 mmol/L (3.5-5.1); Sodium 138 mmol/L (136-145); Total Protein 7.7 g/dL (6.4-8.2); Triglyceride 102 mg/dL (<150)
[2023-08-18 09:27] LABS: FREE T4 0.84 ng/dL (0.76-1.46)
[2023-08-18 18:21] LABS: Thyroglobulin Antibody <15 U/mL (<=60); Thyroperoxidase Antibody <28 U/mL (<=60)
== END 2023-08-18 05:18 | disposition home or self-care (01) ==
LOC: LBO 05:17
PROVIDERS: PCP Nurse Practitioner Family; Visit Provider Nurse Practitioner Family
DX: Z76.89 Persons encountering health services in other specified circumstances (principal); E03.8 Other specified hypothyroidism
CPT/HCPCS: 36415; 80053; 80061; 86376; 84439; 84443

== ENCOUNTER 2024-04-11 04:47 | Outpatient (CLI) | payer MEDICAID, SELFPAY ==
[2024-04-11 09:40] LABS: TSH (W/Ref FT4) 3.56 uIU/mL (0.36-3.74)
== END 2024-04-11 04:48 | disposition home or self-care (01) ==
PROVIDERS: PCP Nurse Practitioner Family; Visit Provider Family Medicine
DX: E03.8 Other specified hypothyroidism (principal)
CPT/HCPCS: 36415; 84443

== ENCOUNTER 2024-08-15 02:11 | Outpatient (CLI) | payer BC, SELFPAY ==
--- NOTE | 2024-08-15 06:45 | DI.MAMMO_ITS ---
Exam(s) MAMMO SCREENING EXAM: MAMMO SCREENING CLINICAL HISTORY: screening,z12.39 TECHNIQUE: Bilateral full field digital CC and MLO mammographic images were obtained with 3D tomosyn thesis and utilizing computer aided detection (CAD). COMPARISON: Available for comparison. FINDINGS: Masses/Architectural Distortion: No suspicious masses or areas of architectural distortion are presen t. Microcalcifications: No suspicious pleomorphic-type are seen. Skin Thickening/Nipple Retraction: None. IMPRESSION: 1. No significant interval change with no specific features of malignancy noted. 2. Unless there is more urgent need, screening mammography is recommended, as per [employer] guidelines. BI-RADS Category 1 - Negative Breast Density - Category C - The breast are heterogeneously dense, which may obscure small masses. Breast density Category C or D implies that the patient has dense breast tissue. Dense breast tissue can make it harder to find cancer on a mammogram. Dense breast tissue is also associated with an incr eased risk of breast cancer. This information about the result of the mammogram report was provided to the patient to raise their awareness. Use this report when you speak with the patient about their risks for breast cancer, which includes their family history. At that time, you may recommend additional screening tests (Ultrasoun d or MRI) as these tests may add significant information. A negative radiographic report should not delay biopsy if a dominant or clinically suspicious mass is present. Up to ten percent of cancers are not identified on mammography. A negative report may reinforce clinical impression. Adenosis and dense breasts may obscure an underlying neoplasm. False positive reports average 6 to 10%. Patient will receive a letter notifying them of these results.
== END 2024-08-15 02:31 ==
LOC: DI 02:11
PROVIDERS: PCP Nurse Practitioner Family; Visit Provider Nurse Practitioner Family
DX: Z12.31 Encounter for screening mammogram for malignant neoplasm of breast (principal); R92.333 Mammographic heterogeneous density, bilateral breasts
CPT/HCPCS: 77063; 77067

== ENCOUNTER 2024-08-27 03:35 | Outpatient (CLI) | payer BC, SELFPAY ==
[2024-08-27 08:12] LABS: Hemoglobin A1C 5.4 % (<5.7)
[2024-08-27 08:27] LABS: BUN 19 mg/dL (7-18); CREATININE 0.9 mg/dL (0.55-1.02); Calcium 9.2 mg/dL (8.5-10.1); Chloride 102 mmol/L (98-107); Estimated GFR 71.39 (mL/min/1.73m2); Glucose 106 mg/dL (74-106); Potassium 4.3 mmol/L (3.5-5.1); Sodium 139 mmol/L (136-145); TSH (W/Ref FT4) 4.61 uIU/mL (0.36-3.74)
[2024-08-27 08:51] LABS: FREE T4 0.89 ng/dL (0.76-1.46)
[2024-08-27 09:01] LABS: Calculated LDL 177 mg/dL (<100); Cholesterol 258 mg/dL (<200); HDL Cholesterol 59 mg/dL (>or=50); Triglyceride 110 mg/dL (<150)
[2024-08-27 19:41] LABS: HBs Antibody, Quant <3.1 mIU/mL (See Note); Hep B Surface Ab Negative (See Note); Hepatitis B Core Antibody Negative (Negative); Hepatitis B Surface Antigen Negative (Negative)
== END 2024-08-27 03:36 | disposition home or self-care (01) ==
LOC: LBO 03:35
PROVIDERS: PCP Nurse Practitioner Family; Visit Provider Nurse Practitioner Family
DX: E03.8 Other specified hypothyroidism (principal); I10 Essential (primary) hypertension; E78.5 Hyperlipidemia, unspecified; Z11.59 Encounter for screening for other viral diseases
CPT/HCPCS: 36415; 80048; 80061; 86704; 86706; 87340; 83036; 84439; 84443